=== PATIENT | female | born 1985 | race Two or more races ===

== ENCOUNTER 2019-06-30 01:23 | Inpatient (IN) | payer MEDICAID, OTHER ==
[~2019-06-30] VITALS: Ht 170.2 cm; Wt 85.7 kg
[2019-06-30 02:33] LABS: HEMATOCRIT 38.1 % (36.0-47.0); HEMOGLOBIN 12.6 g/dl (12.0-15.5); MEAN CORPUSCULAR HGB CONC 33.1 g/dl (32.0-36.5); MEAN CORPUSCULAR VOLUME 81.8 fl (80.0-96.0); PLATELET COUNT, AUTOMATED 297 10^3/uL (150-450); RED BLOOD COUNT 4.66 10^6/uL (4.00-5.40); WHITE BLOOD COUNT 9.1 10^3/uL (4.0-10.0)
[2019-06-30 03:11] LABS: ACETAMINOPHEN LEVEL < 2.0 UG/ML (10.0-30.0); ALBUMIN 3.1 GM/DL (3.2-5.2); ALT/SGPT 14 U/L (12-78); BILIRUBIN,DIRECT < 0.1 MG/DL (0.0-0.2); BILIRUBIN,TOTAL 0.4 MG/DL (0.2-1.0); BLOOD UREA NITROGEN 7 MG/DL (7-18); CALCIUM LEVEL 8.7 MG/DL (8.5-10.1); CARBON DIOXIDE LEVEL 25 MEQ/L (21-32); CHLORIDE LEVEL 106 MEQ/L (98-107); CREATININE FOR GFR 0.61 MG/DL (0.55-1.30); ETHYL ALCOHOL (ETHANOL) < 0.003 % (0.000-0.010); GLOMERULAR FILTRATION RATE > 60.0 (>60); GLUCOSE, FASTING 95 MG/DL (70-100); SALICYLATE LEVEL 3.8 MG/DL (5.0-30.0); SODIUM LEVEL 139 MEQ/L (136-145); THYROID STIMULATING HORMONE 0.271 uIU/ML (0.358-3.740); TOTAL PROTEIN 7.5 GM/DL (6.4-8.2)
[2019-06-30 04:09] LABS: HCG, SERUM QUALITATIVE NEGATIVE (NEGATIVE)
[2019-06-30 04:42] LABS: AMPHETAMINES LEVEL URINE NEGATIVE (NEGATIVE); BARBITURATES URINE NEGATIVE (NEGATIVE); BENZODIAZEPINES URINE NEGATIVE (NEGATIVE); CANNABINOIDS URINE POSITIVE (NEGATIVE); COCAINE METABOLITE URINE NEGATIVE (NEGATIVE); METHADONE URINE NEGATIVE (NEGATIVE); OPIATES URINE NEGATIVE (NEGATIVE); PHENCYCLIDINE URINE NEGATIVE (NEGATIVE)
[2019-06-30] MEDS ORDERED: SUBO12MI SL (08:05)
[2019-06-30] MEDS ORDERED: REME45TA2 PO (08:05)
[2019-06-30] MEDS ORDERED: MOM 30ML SUSPENSION UDC PO PRN (12:00)
[2019-06-30] MEDS ORDERED: traZODone 50 MG TAB PO PRN (12:00)
[2019-06-30] MEDS ORDERED: ACETAMINOPHEN TAB 650MG DOSE (2X325MG) PO PRN (12:00)
[2019-06-30] MEDS ORDERED: MAALOX 30 ML SUSP *UDC PO PRN (12:00)
[2019-06-30] MEDS ORDERED: XULA1DIS TOP (12:18)
[2019-06-30] MEDS ORDERED: GABA600T4 PO (12:18)
[2019-06-30] MEDS ORDERED: TRAM50TA2 PO (12:18)
[2019-06-30 14:56] VITALS: BP 109/59
--- NOTE | 2019-06-30 19:33 | HPEPDOC ---
[facility] Medical History & Physical Date of Admission Jun 30, 2019 Date of Service: Jun 30, 2019 Attending Physician: Laurie Kimbrough MD History and Physical HISTORY OF PRESENT ILLNESS: Patient is a 33-year-old female with past medical history of chronic back and leg pain, borderline personality disorder, anxiety, depression who was admitted to inpatient mental health on 06/30/2019 with the chief complaint of unspecified depressive disorder. According to notes the patient was brought to [facility] after calling the police stating that she was going to harm herself. The patient has a history of self-harm, suicidal ideation. According to notes the patient was acting very during their initial examination in the emergency room with falling asleep frequently, the patient was guarded with responses. She remembered coming to the emergency room but denied making comments saying she went to kill herself. She admits to being noncompliant with her psychiatric medications. And she later states that she lost the medications and that's why she wasn't taking her meds. The patient was admitted to inpatient mental health for unspecified depressive disorder, suicidal ideation. On my evaluation of the patient she was very short with me, she admitted to hearing voices at times. She states the voices are people that she knows and sometimes or not. She admits to feeling hopeless and she states nobody listens to her. She would frequently fall asleep during our interview and then quickly shake her head and say "I'm sorry". The patient denies suicidal or homicidal ideation with me currently. She denies chest pain, nausea, vomiting, fevers, chills. REVIEW OF SYSTEMS: CONSTITUTIONAL: Denies lack of energy, unexplained weight gain or weight loss, loss of appetite, fever, night sweats EYES: Denies eye drainage, eye pain, visual changes, dry/irritated eye EARS, NOSE, MOUTH, THROAT: Denies difficulty hearing, ringing in ears, mouth sores, loose teeth, sore throat, facial numbness or pain NECK: Denies swollen glands CARDIOVASCULAR: Denies irregular heartbeat, racing heart, chest pains, swelling of feet or legs, pain in legs with walking RESPIRATORY: Denies shortness of breath, night sweats, wheezing, sputum production, oxygen at home, coughing up blood, cough lasting > 1 month GASTROINTESTINAL: Denies abdominal pain, constipation, bloody stool, diarrhea, heartburn, nausea, vomiting GENITOURINARY: Denies painful urination, bloody urine, frequent urination, urgency, leaking urine, impotence MUSCULOSKELETAL: Denies joint pain, muscle pain, leg swelling INTEGUMENTARY: Denies rash, itching, new skin lesion, change in existing skin lesion, hair loss or increase, breast changes. NEUROLOGICAL: Denies headaches, dizziness, difficulty walking, numbness or tingling PAST MEDICAL HISTORY: 1. Borderline personality disorder 2. Anxiety 3. Depression 4. History of self-harm by cutting 5. History of suicidal ideation 6. History of drug use 7. Tobacco use PAST SURGICAL HISTORY: 1. None FAMILY HISTORY: Father: Diabetes, hypertension. Alive Mother: Diabetes. Alive SOCIAL HISTORY: The patient admits to smoking 1 pack per day for the past 18 years. She smokes cigarettes and marijuana. She is also used "other drugs" in the past but she did not specify. She denies alcohol use. Her primary care provider is Dr. Cronin in [place], she follows with psychiatry community [facility]. ALLERGIES: Please see below. HOME MEDICATIONS: Please see below. PHYSICAL EXAMINATION: CONSTITUTIONAL: No acute distress, sitting up in bed, falls asleep frequently during interview EYES: PERRLA, EOM intact HENT, MOUTH: Normocephalic, atraumatic, moist mucous membranes, NECK: SUPPLE, no JVD, no lymphadenopathy, no carotid bruit CV: Regular rate and rhythm, S1S2 normal, no murmurs/rubs/gallops RESPIRATORY: Clear to auscultation bilaterally, no rales/rhonchi/wheezes GI: BS positive in 4 quadrants, soft, nontender, nondistended, no rebound or guarding, no organomegaly : Deferred MUSCULOSKELETAL: Normal ROM. No cyanosis, clubbing, swelling, joint deformity, extremity edema INTEGUMENTARY: Multiple scarred and scabbed areas up and down her arms from prior cutting, some scabbed in more recent. Some deeper scars noted as well. Multiple tattoos. no rashes NEUROLOGIC: Cranial Nerves II-XII are intact, no focal deficits PSYCHIATRIC: Flat affect LABORATORY DATA: Please see below IMAGING: None ASSESSMENT: 33-year-old female limited under inpatient mental health for unspecified depressive disorder. PLAN: 1. Unspecified depressive disorder with suicidal ideation. Plan as per psychiatry team. 2. Borderline personality disorder. Plan as per psychiatry team. 3. Anxiety. Plan as per psychiatry team. 4. History of drug use. C/w suboxone. 5. Tobacco use. Recommend nicotine patch. 6. Back and leg pain, chronic. Resume home medications. DISPOSITION: The patient is currently admitted under inpatient mental health. At this time we'll sign off on patient. Please feel free to reach out to us at any time for us to reassess. Vital Signs Vital Signs Date Time Temp Pulse Resp B/P (MAP) Pulse Ox O2 Delivery O2 Flow Rate FiO2 06/30/19 14:56 98.4 61 16 109/59 (76) 98 Room Air Laboratory Data Labs 24H Laboratory Tests 2 06/30/19 02:00: Nucleated Red Blood Cells % (auto) 0.0, Anion Gap 8, Glomerular Filtration Rate > 60.0, Calcium Level 8.7, Total Bilirubin 0.4, Direct Bilirubin < 0.1, Aspartate Amino Transf (AST/SGOT) 22, Alanine Aminotransferase (ALT/SGPT) 14, Alkaline Phosphatase 70, Total Protein 7.5, Albumin 3.1L, Albumin/Globulin Ratio 0.70L, Thyroid Stimulating Hormone (TSH) 0.271L, Human Chorionic Gonadotropin, Qual NEGATIVE, Salicylates Level 3.8L, Urine Opiates Screen NEGATIVE, Urine Methadone Screen NEGATIVE, Acetaminophen Level < 2.0L, Urine Barbiturates Screen NEGATIVE, Urine Phencyclidine Screen NEGATIVE, Urine Amphetamines Screen NEGA TIVE, Urine Benzodiazepines Screen NEGATIVE, Urine Cocaine Metabolite Screen NEGATIVE, Urine Cannabinoids Screen POSITIVEH, Ethyl Alcohol Level < 0.003 CBC/BMP Laboratory Tests 06/30/19 02:00 Home Medications Scheduled Buprenorphine HCl/Naloxone HCl (Suboxone 12 mg-3 mg Sl Film) 1 Each Film, 1.5 STRIP SL DAILY Gabapentin (Gabapentin) 600 Mg Tablet, 600 MG PO TID Mirtazapine (Remeron) 45 Mg Tab.rapdis, 45 MG PO QHS Norelgestromin/Ethin.estradiol (Xulane Patch) 1 Each Patch.tdwk, 1 PATCH TOP QMONTH APPLIED LAST WEEK BUT NOT SURE OF WHAT DAY Scheduled PRN Tramadol HCl (Tramadol HCl) 50 Mg Tablet, 50 MG PO QID PRN for PAIN Allergies Coded Allergies: codeine (Verified Allergy, Intermediate, 06/30/19) A-FIB/CHADSVASC A-FIB History Current/History of A-Fib/PAF?: No Current PO Anticoag Therapy: No Age/Risk Factor Scoring CHADSVASC: CHADSVASC Response (Comments) Value Age Risk Factor Age < 65 years old 0 Gender Risk Factor Female 1 Hx of CHF No 0 Hx of HTN No 0 Hx of Stroke/TIA/or VTE No 0 Hx of Diabetes No 0 Hx of Vascular Disease No 0 Total 1 Treatment Treatment ordered: NONE Laurie Kimbrough MD Jun 30, 2019 19:33
[2019-07-01 06:07] VITALS: BP 150/63
[2019-07-01] MEDS ORDERED: SUBO8MIS SL (12:26)
[2019-07-01] MEDS ORDERED: TOPI100T9 PO (12:28)
[2019-07-01] MEDS ORDERED: traMADol 50 MG TAB PO PRN (15:15)
[2019-07-01] MEDS ORDERED: PILL CUTTER 1 EACH XX PRN (15:15)
[2019-07-01] MEDS: GABAPENTIN 300 MG CAP PO SCH ×2 (15:55→20:31)
[2019-07-01] MEDS: BUPRENORPHINE/NALOXONE 8-2MG SUBLINGUAL TABLET(SUBOXONE) SL SCH (15:55)
[2019-07-01 16:22] VITALS: BP 131/88
[2019-07-01] MEDS ORDERED: MIRTAZAPINE 15 MG TAB PO SCH (21:00)
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
[2019-07-02 06:21] VITALS: BP 90/51
[2019-07-02] MEDS ORDERED: TOPIRAMATE (TopAMAX) 100 MG TAB PO SCH (09:00)
[2019-07-02] MEDS: GABAPENTIN 300 MG CAP PO SCH (09:08)
[2019-07-02] MEDS: BUPRENORPHINE/NALOXONE 8-2MG SUBLINGUAL TABLET(SUBOXONE) SL SCH (09:08)
[2019-07-02] MEDS ORDERED: GABA600T4 PO (10:11)
[2019-07-02] MEDS ORDERED: REME45TA2 PO (10:11)
[2019-07-02] MEDS ORDERED: ABIL1TAB11 PO (10:11)
[2019-07-02] MEDS ORDERED: SUBO8MIS SL (10:11)
--- NOTE | 2019-07-03 21:10 | MHDSPDOC ---
[facility] Discharge Summary Discharge Summary DATE OF ADMISSION: Jun 30, 2019 at 11:55 DATE OF DISCHARGE: Jul 02, 2019 at 12:35 Discharge Alicia Mendiola MRN: N/A Date of : N/A Date of Service: 07/02/2019 Diagnoses Unspecified psychiatric disorder. Methamphetamine use disorder, severe. Opioid use disorder, severe. Nicotine use disorder, unspecified. Hallucinogen use disorder, in remission. History of Present Illness The patient a 33-year-old woman brought to the ED by police, had been reportedly sipping water when she was initially assessed by the psychiatrist, primarily paranoid and acting unusual after using multiple substances. The patient is admitted and resolved quite quickly. Consultants Involved Hospitalist/PCP screening Treatment and Progress On The Unit Patient was admitted to the inpatient mental health unit with relatively quick resolution of her psychotic symptoms returning to a normal mental status exam with fair insight quite quickly. The patient did not require any substantial changes to home medications and was generally resumed on her home medicines. It appeared quite clear that the patient was primarily presenting due to her substance abuse that had caused her to appear to be psychotic. She improved well without any major problems and quickly denied any paranoid thoughts, suicidal thoughts and was cleared for discharge. Discharge Assessment The patient a 33-year-old woman with significant substance use presents after using likely methamphetamine or other stimulant becoming paranoid. She is brought in and after primarily supportive treatment she resolves quickly without any intensive interventions suggesting primarily substance use. The patient at the time of discharge did not meet criteria for involuntary admission/extension due to having a normal mental status exam, fair insight into the situation, They are engaged in the discharge process, as well as being friendly and amenable in behavioral control and havent been engaging in any observed concerning behavior or ideation recently. They decline voluntary extension/admission at this time and must be discharged in good lisandra, as Im unable to make a case for holding the patient against their will. They may have historical risk factors of admissions and other interactions with psychiatry however, those are not modifiable from a clinical perspective. The patient will need to be discharged in good lisandra. Mental Status Examination General: Well dressed with good hygiene Speech: Spontaneous and fluid Thought processes: Linear and logical MSK: Smooth and coordinated gait, no signs of tremors or involuntary orofacial movements Thought content: Future orientated Abstract reasoning, and computation: Intact Description of associations: Intact Description of abnormal or psychotic thoughts: Denies any suicidal or homicidal ideation. Denies any auditory or visual hallucinations. Does not appear to be responding to internal stimuli. Does not appear to be endorsing any bizarre or paranoid ideation. Judgment: fair Insight: fair Orientation: Alert and orientated 3 Cognition: Grossly normal Recent and remote memory: Intact Attention span and concentration: Intact Fund of knowledge: Adequate Mood: "okay" Affect: Euthymic with a full range Follow Up The social work team worked during the predischarge meeting in order to evaluate for further issues of lethality address them fully before discharge. They worked on safety planning with the patient's family members in order to ensure that the patient will have a safe and effective discharge. Time Spent The amount of time spent in the coordination of care for this patient was approximately 45 minutes. Tuesday Vital Signs/I&Os Vital Signs Date Time Temp Pulse Resp B/P (MAP) Pulse Ox O2 Delivery O2 Flow Rate FiO2 07/02/19 06:21 99.6 102 18 90/51 (64) 97 Room Air Medications Scheduled Aripiprazole (Abilify) 5 Mg Tablet, 5 MG PO BID for mood for 7 Days, #14 Buprenorphine HCl/Naloxone HCl (Suboxone 8 mg-2 mg Sl Film) 1 Each Film, 1.5 STRIP SL DAILY for OPIOID for 7 Days, #12 Gabapentin (Gabapentin) 600 Mg Tablet, 600 MG PO TID for anxiety for 7 Days, #21 Mirtazapine (Remeron) 45 Mg Tab.rapdis, 45 MG PO QHS for mood for 7 Days, #7 Norelgestromin/Ethin.estradiol (Xulane Patch) 1 Each Patch.tdwk, 1 PATCH TOP QMONTH, (Reported) APPLIED LAST WEEK BUT NOT SURE OF WHAT DAY Topiramate (Topiramate) 100 Mg Tablet, 1 TAB PO DAILY for . for 30 Days, #60 (Reported) Scheduled PRN Tramadol HCl (Tramadol HCl) 50 Mg Tablet, 50 MG PO QID PRN for PAIN, (Reported) Allergies Coded Allergies: codeine (Verified Allergy, Intermediate, 06/30/19) BOB CAMERON DO Jul 03, 2019 21:10
== END 2019-07-02 12:35 | disposition home or self-care (01) | DRG 773 ==
LOC: M ED 01:23 → M ED INP 11:55 → M ED 14:07 → M PSY 14:10
PROVIDERS: ADMIT Psychiatry & Neurology Psychiatry; ATTEND Psychiatry & Neurology Addiction Medicine
DX: F19.150 Other psychoactive substance abuse with psychoactive substance-induced psychotic disorder with delusions (principal); R45.851 Suicidal ideations; F41.9 Anxiety disorder, unspecified; F17.210 Nicotine dependence, cigarettes, uncomplicated; F15.20 Other stimulant dependence, uncomplicated; F11.20 Opioid dependence, uncomplicated; G89.29 Other chronic pain; F29 Unspecified psychosis not due to a substance or known physiological condition; Z81.8 Family history of other mental and behavioral disorders; Z88.5 Allergy status to narcotic agent; Z91.5 Personal history of self-harm

== ENCOUNTER 2019-10-30 14:47 | Emergency (ER) | payer MEDICAID, OTHER ==
[~2019-10-30] VITALS: Ht 170.2 cm; Wt 80.7 kg
[~2019-10-30 14:47] MED LIST: ABIL1TAB11 PO; GABA600T4 PO; REME45TA2 PO; SUBO12MI SL; SUBO8MIS SL; TOPI100T9 PO; TRAM50TA2 PO; XULA1DIS TOP
[2019-10-30] MEDS ORDERED: NS 1,000 ML IV ONE (16:30)
--- NOTE | 2019-10-30 17:28 | REPVR ---
PROCEDURE INFORMATION: Exam: US Right Non-Vascular Joint or Other Extremity Structure, Limited Lower Extremity Exam date and time: 10/30/2019 5:05 PM Age: 33 years old Clinical indication: Pain; Thigh; Right; Additional info: Erythema, induration, R/O fb, PT injected 3 days ago TECHNIQUE: Imaging protocol: Right US joint or other nonvascular extremity structure or structures. Real-time ultrasound with image documentation. Limited study. Exam focused on the lower extremity in the region of clinical interest. COMPARISON: No relevant prior studies available. FINDINGS: Soft tissues: The patient has a scab from previous injection lower thigh and now with erythema and swelling. Ultrasound was performed specifically at this location and there is no evidence of echogenic foreign body. There is however a superficial vein that is completely thrombosed consistent with thrombophlebitis. This superficial vein is probably an anterior accessory vein 7 cm in length. There is occlusive thrombus distending the vein by 5 mm. There is evidence marked focal soft tissue swelling with cellulitis and thrombus. IMPRESSION: In the area of concern there is a thrombosed superficial vein consistent with superficial thrombophlebitis and diffuse edema consistent with cellulitis. Electronically signed by: Antonio Monsalve On 10/30/2019 17:28:09 PM
[2019-10-30] MEDS ORDERED: BACTRIM 160MG/800MG DS TAB PO ONE (20:15)
[2019-10-30] MEDS ORDERED: KETOROLAC 30 MG/ML 1ML VIAL IV ONE (20:15)
[2019-10-30] MEDS ORDERED: VANCOMYCIN HCL 750 MG, VIAL MATE ADAPTER 1 EACH in D5W 250 ML IV ONE ×6 (20:15)
[2019-10-30] MEDS ORDERED: VANCOMYCIN HCL 1,500 MG in IV FLUID PLACE HOLDER 1 EA IV ONE (20:15)
[2019-10-30] MEDS ORDERED: NAPR-837 PO (20:34)
[2019-10-30] MEDS ORDERED: BACT800T5 PO (20:34)
[2019-10-31 00:03] VITALS: BP 96/51
== END 2019-10-31 00:04 | disposition home or self-care (01) ==
LOC: M ED 14:47
DX: I80.01 Phlebitis and thrombophlebitis of superficial vessels of right lower extremity (principal); L03.115 Cellulitis of right lower limb; L03.116 Cellulitis of left lower limb; F19.10 Other psychoactive substance abuse, uncomplicated; G93.5 Compression of brain; E03.9 Hypothyroidism, unspecified; F17.200 Nicotine dependence, unspecified, uncomplicated; Z88.5 Allergy status to narcotic agent; Z79.899 Other long term (current) drug therapy; Z79.3 Long term (current) use of hormonal contraceptives
CPT/HCPCS: 36415; 76882; 87040; 96361; 96365; 96366; 96375; 99284; J1885; J3370

== ENCOUNTER 2020-11-20 10:40 | Inpatient (IN) | payer MEDICAID, OTHER ==
[~2020-11-20] VITALS: Ht 172.7 cm; Wt 97.6 kg
[~2020-11-20 10:40] MED LIST changes: +BACT800T5 PO; +NAPR-837 PO
[2020-11-20 12:04] LABS: HEMATOCRIT 47.6 % (36.0-47.0); HEMOGLOBIN 15.3 g/dl (12.0-15.5); MEAN CORPUSCULAR HEMOGLOBIN 25.9 pg (27.0-33.0); MEAN CORPUSCULAR HGB CONC 32.1 g/dl (32.0-36.5); MEAN CORPUSCULAR VOLUME 80.7 fl (80.0-96.0); PLATELET COUNT, AUTOMATED 416 10^3/uL (150-450); WHITE BLOOD COUNT 9.8 10^3/uL (4.0-10.0)
[2020-11-20 12:21] LABS: AMPHETAMINES LEVEL URINE POSITIVE (NEGATIVE); BARBITURATES URINE NEGATIVE (NEGATIVE); BENZODIAZEPINES URINE NEGATIVE (NEGATIVE); CANNABINOIDS URINE NEGATIVE (NEGATIVE); COCAINE METABOLITE URINE NEGATIVE (NEGATIVE); METHADONE URINE NEGATIVE (NEGATIVE); OPIATES URINE NEGATIVE (NEGATIVE); PHENCYCLIDINE URINE NEGATIVE (NEGATIVE)
[2020-11-20 12:58] LABS: ALBUMIN 4.2 GM/DL (3.2-5.2); ALT/SGPT 42 U/L (12-78); BILIRUBIN,DIRECT 0.2 MG/DL (0.0-0.2); BILIRUBIN,TOTAL 0.5 MG/DL (0.2-1.0); BLOOD UREA NITROGEN 7 MG/DL (7-18); CALCIUM LEVEL 9.9 MG/DL (8.5-10.1); CARBON DIOXIDE LEVEL 27 MEQ/L (21-32); CHLORIDE LEVEL 102 MEQ/L (98-107); CREATININE FOR GFR 0.76 MG/DL (0.55-1.30); GLOMERULAR FILTRATION RATE > 60.0 (>60); GLUCOSE, FASTING 91 MG/DL (70-100); POTASSIUM SERUM 4.2 MEQ/L (3.5-5.1); SALICYLATE LEVEL 4.4 MG/DL (5.0-30.0); SODIUM LEVEL 137 MEQ/L (136-145); THYROID STIMULATING HORMONE 0.662 uIU/ML (0.358-3.740); TOTAL PROTEIN 9.7 GM/DL (6.4-8.2)
[2020-11-20 12:59] LABS: ACETAMINOPHEN LEVEL < 2.0 UG/ML (10.0-30.0); ETHYL ALCOHOL (ETHANOL) < 0.003 % (0.000-0.010)
[2020-11-20 13:12] LABS: HCG, SERUM QUALITATIVE NEGATIVE (NEGATIVE)
[2020-11-20] MEDS ORDERED: LORazepam 2 MG TAB PO STA (13:58)
[2020-11-20 20:55] LABS: RSV AMPLIFICATION NEGATIVE (NEGATIVE)
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
[2020-11-20] MEDS ORDERED: CITA40TA4 PO (23:55)
[2020-11-20] MEDS ORDERED: HOME MED LIST COMPLETE! XX SCH (23:55)
[2020-11-20] MEDS ORDERED: SUBO12MI SL (23:55)
[2020-11-20] MEDS ORDERED: MIRT-62 PO (23:55)
[2020-11-20] MEDS ORDERED: HYDR50TA70 PO (23:55)
[2020-11-21] MEDS ORDERED: ACETAMINOPHEN TAB 650MG DOSE (2X325MG) PO PRN (00:30)
[2020-11-21] MEDS ORDERED: MOM 30ML SUSPENSION UDC PO PRN (00:30)
[2020-11-21] MEDS ORDERED: OLANZapine ORAL DISINTEGRATING TAB 5MG PO ONE (00:30)
[2020-11-21] MEDS ORDERED: MAALOX 30 ML SUSP *UDC PO PRN (00:30)
[2020-11-21 06:45] VITALS: BP 112/53
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
[2020-11-21 16:49] VITALS: BP 120/60
[2020-11-21] MEDS: traZODone 50 MG TAB PO PRN (20:49)
[2020-11-21] MEDS: OLANZapine 5 MG TAB PO SCH (20:49)
[2020-11-22 06:16] VITALS: BP 109/53
[2020-11-22] MEDS: OLANZapine 5 MG TAB PO SCH ×2 (09:00→21:00)
--- NOTE | 2020-11-22 13:12 | MHIPNPDOC ---
[facility] Progress Note Progress Note DATE OF SERVICE: 11/22/20 HISTORY: See H&P Interval: Lying in bed isolative to room, has refused her olanzapine. When asked about why refusing medications just mutters to herself, poorly interactive on interview but is able to endorse not having medication side effects, denies suicidal homicidal ideations. Denies psychiatric symptoms and mostly withdrawn. Was encouraged to take medications to help improve her symptoms. Made aware in a safe environment. VITAL SIGNS: See below. NEW TEST RESULTS: None CURRENT MEDICATIONS: See below. MENTAL STATUS EXAMINATION: Patient is a 34-year old female, who is in no acute distress, elevated BMI, long dark hair, poor eye contact Speech: Is poverty of speech Language skills are poor. Thought processes including: Disorganized. Thought content: Denies suicidal homicidal ideation. Abstract reasoning, and computation: Poor. Description of associations: Poor. Description of abnormal or psychotic thoughts: Denies, but appears internally. Judgment: Poor. Insight: Poor. Orientation: To person place and time. Recent and remote memory: Poor. Attention span and concentration: Poor. Language: Maori Fund of knowledge: Unable to fully assess based on injury Mood: "[place]". Affect: Flat, withdrawn, internally preoccupied DIAGNOSES: Substance-induced psychosis Nicotine use disorder methamphetamine use disorder Rule out borderline personality disorder Rule out antisocial personality disorder Rule out bipolar disorder ASSESSMENT: Patient continues to remain internally preoccupied, grossly psychotic and refusing medications despite encouragement. Mostly isolative to her room lying in bed. Denies any acute physical concerns or medication side effects. Refuses medication changes when offered. MANAGEMENT PLAN: Continue with current medications encouraged to take her o lanzapine for psychotic symptoms, remain psychotic warranting continued hospital stay. TIME SPENT: 15 minutes. Vital Signs Vital Signs Date Time Temp Pulse Resp B/P (MAP) Pulse Ox O2 Delivery O2 Flow Rate FiO2 11/22/20 06:16 97.6 67 16 109/53 (71) 95 Room Air Current Medications Current Medications Medications (Trade) Dose Ordered Sig/Shad Route PRN Reason Start Time Stop Time Status Last Admin Dose Admin Acetaminophen (Tylenol Tab) 650 mg Q6HP PRN PO HEADACHE or MILD DISCOMFORT 11/21/20 00:30 Al Hydrox/Mg Hydrox/Simethicone (Mylanta) 30 ml Q4HP PRN PO HEARTBURN/INDIGESTION 11/21/20 00:30 Home Med (Home Med List Complete!) ASDIRECTED XX 11/20/20 23:55 11/21/20 00:06 DC Lorazepam (Ativan) 2 mg STAT STAT PO 11/20/20 13:58 11/20/20 13:59 DC 11/20/20 14:04 Magnesium Hydroxide (Milk Of Magnesia) 30 ml DAILYPRN PRN PO CONSTIPATION 11/21/20 00:30 Olanzapine (ZyPREXA) 5 mg BID PO 11/21/20 21:00 11/21/20 20:49 Trazodone HCl (Desyrel) 50 mg QHSP PRN PO INSOMNIA 11/21/20 00:30 11/21/20 20:49 Allergies Coded Allergies: codeine (Verified Allergy, Intermediate, 06/30/19) DION RANDOLPH MD Nov 22, 2020 13:12
--- NOTE | 2020-11-22 15:21 | HPEPDOC ---
[facility] Medical History & Physical Date of Admission Nov 21, 2020 Date of Service: Nov 22, 2020 Attending Physician: JANE DAVEY MD History and Physical CHIEF COMPLAINT: Suicidal gesture with suicidal ideation HISTORY OF PRESENT ILLNESS: 34-year-old female with a history of PSUD borderline personality disorder, anxiety, depression who was admitted to inpatient mental health on 11/21/2020 a suicidal gesture/attempt when she cut herself at the neck with broken glass and performed the same on her arms and reported suicidal ideation to her from whom she is , and he called 911 and she was brought into the ED. According to the medical record notes, she was brought to [facility] after self harming behavior with cutting herself with broken glass and endorsing suicidal intentions to her . then reported that may have been using illicit drugs with noncompliance with her psychiatric medications. She is now admitted to the [facility] and internal medicine is consulted for a medical H&P. On my evaluation, she was in bed, with blanket over most of her head to the neck reporting feeling tired. She answering questions with mostly yes or no and denied any chronic medications outside of her psych medications, no chronic medical conditions, denies recent fever, chills, SOB, recent travel, abdominal pain, chest pain, palpitations, diarrhea, any bleeding. REVIEW OF SYSTEMS: 9 point ROS was negative. She refused to answer questions pertaining to psychiatric health mainly suicidality, hearing voices or being depressed, though it was quite evident with her flat affect and lack of interest. PAST MEDICAL HISTORY: 1. Borderline personality disorder 2. Anxiety 3. Depression 4. History of self-harm by cutting 5. History of suicidal ideation 6. History of drug use 7. Tobacco use PAST SURGICAL HISTORY: 1. None FAMILY HISTORY: Father: Diabetes, hypertension. Alive Mother: Diabetes. Alive SOCIAL HISTORY: Nicotine addiction, smokes PSUD with multiple substance ALLERGIES: Please see below. HOME MEDICATIONS: Please see below. PHYSICAL EXAMINATION: CONSTITUTIONAL: No acute distress, laying in bed with blankets pulled up to chin EYES: PERRLA, EOM intact HENT, Normocephalic, atraumatic CV: refused examination RESPIRATORY: Breathing comfortably on room air, no audible wheezing, speaking in full sentences. Refused auscultation GI: Refused NEUROLOGIC: clear speech, cranial nerves appear intact PSYCHIATRIC: Flat affect LABORATORY DATA: Please see below IMAGING: None ASSESSMENT: 34-year-old W was is admitted to inpatient mental health for suicidal behavior with unspecified depressive disorder and PSUD. PLAN: 1. Unspecified depressive disorder with suicidal ideation. Plan as per psychiatry team. 2. Borderline personality disorder. Plan as per psychiatry team. 3. Anxiety. Plan as per psychiatry team. 4. History of drug use. per psychiatry team. 5. Tobacco use. Recommend nicotine patch. DVT ppx: ambulatory At this time we'll sign off on patient. Please feel free to reach out to internal medicine at any time for medical concerns. Vital Signs Vital Signs Date Time Temp Pulse Resp B/P (MAP) Pulse Ox O2 Delivery O2 Flow Rate FiO2 11/22/20 06:16 97.6 67 16 109/53 (71) 95 Room Air Home Medications Scheduled Buprenorphine HCl/Naloxone HCl (Suboxone 12 mg-3 mg Sl Film) 1 Each Film, 1 STRIP SL DAILY Citalopram Hydrobromide (Citalopram HBr) 40 Mg Tablet, 40 MG PO DAILY Mirtazapine (Remeron) 15 Mg Tablet, 15 MG PO QHS Scheduled PRN Hydroxyzine HCl (Hydroxyzine HCl) 50 Mg Tablet, 50 MG PO TID PRN for ANXIETY Allergies Coded Allergies: codeine (Verified Allergy, Intermediate, 06/30/19) A-FIB/CHADSVASC A-FIB History Current/History of A-Fib/PAF?: No Current PO Anticoag Therapy: No Age/Risk Factor Scoring CHADSVASC: CHADSVASC Response (Comments) Value Age Risk Factor Age < 65 years old 0 Gender Risk Factor Female 1 Hx of CHF No 0 Hx of HTN No 0 Hx of Stroke/TIA/or VTE No 0 Hx of Diabetes No 0 Hx of Vascular Disease No 0 Total 1 Treatment Treatment ordered: NONE Reason Anticoagulant not given: Not indicated/[id number] JANE DAVEY MD Nov 22, 2020 15:21
[2020-11-22 16:19] VITALS: BP 113/59
[2020-11-23] MEDS: OLANZapine 5 MG TAB PO SCH ×2 (09:28→20:43)
--- NOTE | 2020-11-23 12:07 | MHIPNPDOC ---
[facility] Progress Note Progress Note DATE OF SERVICE: 11/23/20 HISTORY: See H&P Interval: Continues to be lying in bed mostly isolative to room. No aggression or agitation seen. Did take her overnight olanzapine without noted side effects or acute concerns physically by patient. Sleep is reported to be good, appetite okay. No tight muscles endorsed or shakiness noted on interview. VITAL SIGNS: See below. NEW TEST RESULTS: None CURRENT MEDICATIONS: See below. MENTAL STATUS EXAMINATION: Patient is a 34-year old female, who is in no acute distress, elevated BMI, long dark hair, poor eye contact Speech: poverty of speech, one-word answers Language skills are poor. Thought processes including: Disorganized. Thought content: Denies suicidal homicidal ideation. Abstract reasoning, and computation: Poor. Description of associations: Poor. Description of abnormal or psychotic thoughts: Denies, but appears internally. Judgment: Poor. Insight: Poor. Orientation: To person place and time. Recent and remote memory: Poor. Attention span and concentration: Poor. Language: Lao Fund of knowledge: Unable to fully assess based on injury Mood: "same". Affect: no change, Continues to be be flat, withdrawn, internally preoccupied DIAGNOSES: Substance-induced psychosis Nicotine use disorder methamphetamine use disorder Rule out borderline personality disorder Rule out antisocial personality disorder Rule out bipolar disorder ASSESSMENT: Patient continues to be lying in bed, despondent, looking at the wall with poor eye contact, denying psychiatric symptoms, but takes medications. No acute physical complaints or concerns. MANAGEMENT PLAN: Continue with current medications, denies side effects. TIME SPENT: 15 minutes. Vital Signs Vital Signs Date Time Temp Pulse Resp B/P (MAP) Pulse Ox O2 Delivery O2 Flow Rate FiO2 11/22/20 16:19 98.7 66 16 113/59 (77) 95 Room Air Current Medications Current Medications Medications (Trade) Dose Ordered Sig/Shad Route PRN Reason Start Time Stop Time Status Last Admin Dose Admin Acetaminophen (Tylenol Tab) 650 mg Q6HP PRN PO HEADACHE or MILD DISCOMFORT 11/21/20 00:30 Al Hydrox/Mg Hydrox/Simethicone (Mylanta) 30 ml Q4HP PRN PO HEARTBURN/INDIGESTION 11/21/20 00:30 Home Med (Home Med List Complete!) ASDIRECTED XX 11/20/20 23:55 11/21/20 00:06 DC Lorazepam (Ativan) 2 mg STAT STAT PO 11/20/20 13:58 11/20/20 13:59 DC 11/20/20 14:04 Magnesium Hydroxide (Milk Of Magnesia) 30 ml DAILYPRN PRN PO CONSTIPATION 11/21/20 00:30 Olanzapine (ZyPREXA) 5 mg BID PO 11/21/20 21:00 11/23/20 09:28 Trazodone HCl (Desyrel) 50 mg QHSP PRN PO INSOMNIA 11/21/20 00:30 11/21/20 20:49 Allergies Coded Allergies: codeine (Verified Allergy, Intermediate, 06/30/19) DION RANDOLPH MD Nov 23, 2020 12:07
[2020-11-23 16:34] VITALS: BP 106/59
[2020-11-23] MEDS: traZODone 50 MG TAB PO PRN (20:43)
[2020-11-24 07:11] VITALS: BP 91/50
[2020-11-24] MEDS: OLANZapine 5 MG TAB PO SCH ×2 (08:11→20:25)
--- NOTE | 2020-11-24 15:56 | MHIPNPDOC ---
[facility] Progress Note Progress Note DATE OF SERVICE: 11/24/20 HISTORY: Patient is a 34 -year-old , Unemployed, Domiciled , female, was a 9.41 to [facility] after she attempted to cut her neck with a piece of glass. Her stopped her attempt and reports that stopped her twice from cutting herself. Patient has not been taking medications. Reported to her that she wanted to . Has a history of polysubstance abuse. Her last hospitalization June 2019. At that time her diagnosis was opioid use disorder, severe. VITAL SIGNS: See below. NEW TEST RESULTS: None CURRENT MEDICATIONS: See below. MENTAL STATUS EXAMINATION: Patient is a 34-year old female, who is in no acute distress, elevated BMI, long dark hair, poor eye contact, malodorous, unkempt Speech: impoverished, one-word answers Language skills are poor. Thought processes including: Disorganized. Thought content: Unable to determine depression or anxiety as patient is refusing to speak in interview. She had reported to senior planner that she has suicidal homicidal ideations. Abstract reasoning, and computation: Poor. Description of associations: Poor. Description of abnormal or psychotic thoughts: Denies, but unable to assess, she refuses to engage in interview Judgment: Poor. Insight: Poor. Orientation: To person place and time. Recent and remote memory: Poor. Attention span and concentration: Poor. Language: Welsh Fund of knowledge: Unable to fully assess based on refusal to engage in interview Mood: neutral. Affect: no change, Continues to be be flat, withdrawn, isolative DIAGNOSES: Substance-induced psychosis Nicotine use disorder methamphetamine use disorder Rule out borderline personality disorder Rule out antisocial personality disorder Rule out bipolar disorder ASSESSMENT: Patient continues to sleep. She is isolative, guarded and withdrawn. Per staff patient sleep throughout the day. She is not engaged in the milieu or any other treatments but she is compliant with medications. Have attempted to see this patient x 3 throughout this shift. Patient has poor attention to ADLs. MANAGEMENT PLAN: Continue with current medications, denies side effects. Will discharge when patient is stable. TIME SPENT: 15 minutes. Vital Signs Vital Signs Date Time Temp Pulse Resp B/P (MAP) Pulse Ox O2 Delivery O2 Flow Rate FiO2 11/24/20 07:11 99.0 62 18 91/50 (64) 97 Room Air Current Medications Current Medications Medications (Trade) Dose Ordered Sig/Shad Route PRN Reason Start Time Stop Time Status Last Admin Dose Admin Acetaminophen (Tylenol Tab) 650 mg Q6HP PRN PO HEADACHE or MILD DISCOMFORT 11/21/20 00:30 Al Hydrox/Mg Hydrox/Simethicone (Mylanta) 30 ml Q4HP PRN PO HEARTBURN/INDIGESTION 11/21/20 00:30 Home Med (Home Med List Complete!) ASDIRECTED XX 11/20/20 23:55 11/21/20 00:06 DC Lorazepam (Ativan) 2 mg STAT STAT PO 11/20/20 13:58 11/20/20 13:59 DC 11/20/20 14:04 Magnesium Hydroxide (Milk Of Magnesia) 30 ml DAILYPRN PRN PO CONSTIPATION 11/21/20 00:30 Olanzapine (ZyPREXA) 5 mg BID PO 11/21/20 21:00 11/24/20 08:11 Trazodone HCl (Desyrel) 50 mg QHSP PRN PO INSOMNIA 11/21/20 00:30 11/23/20 20:43 Allergies Coded Allergies: codeine (Verified Allergy, Intermediate, 06/30/19) SATURNINO LOMELI NP Nov 24, 2020 15:36
[2020-11-24 17:52] VITALS: BP 104/56
[2020-11-24] MEDS: traZODone 50 MG TAB PO PRN (20:25)
[2020-11-25 06:00] VITALS: BP 97/57
[2020-11-25] MEDS: OLANZapine 5 MG TAB PO SCH (09:49)
--- NOTE | 2020-11-25 12:00 | MHIPNPDOC ---
[facility] Progress Note Progress Note DATE OF SERVICE: 11/25/20 HISTORY: Patient is a 34 -year-old , Unemployed, Domiciled , female, was a 9.41 to [facility] after she attempted to cut her neck with a piece of glass. Her stopped her attempt and reports that stopped her twice from cutting herself. Patient has not been taking medications. Reported to her that she wanted to . Has a history of polysubstance abuse. Her last hospitalization June 2019. At that time her diagnosis was opioid use disorder, severe. VITAL SIGNS: See below. NEW TEST RESULTS: None CURRENT MEDICATIONS: See below. MENTAL STATUS EXAMINATION: Patient is a 34-year old female, who is in no acute distress, elevated BMI, long dark hair, poor eye contact, malodorous, unkempt Speech: only has minimal responses Language skills are poor. Thought processes including: more linear Thought content: reports depression and fleeting suicidal thoughts Abstract reasoning, and computation: fair. Description of associations: fair Description of abnormal or psychotic thoughts: denied Judgment: improving Insight: improving Orientation: To person place and time. Recent and remote memory: improving Attention span and concentration: Poor but improving Language: Kazakh Fund of knowledge: average Mood: neutral. Affect: no change, Continues to be be flat, withdrawn, isolative DIAGNOSES: Substance-induced psychosis Nicotine use disorder methamphetamine use disorder Rule out borderline personality disorder Rule out antisocial personality disorder Rule out bipolar disorder ASSESSMENT: Patient awake minimally during interview. States that her suicidal attempt was an "accident" and that she is in the hospital for medication franco ges. Patient presents as superficial and not fully awake. States that she would like her medications reinstated - states she was on Citalopram (verified) and Gabapentin (states she had this in longterm in December) she reports that this is for nerve pain and anxiety. Patient has had no episodes of anxiety and does not complain of nerve pain. She reports that she is fatigued. During the interview, patient fell asleep. Per staff report, patient is well know to [facility] and oftentimes is isolative and withdrawn. She does not participate in the milieu often times sleeping all day and more animated in the evening. MANAGEMENT PLAN: Continue with current medications, denies side effects. Will discharge when patient is stable. TIME SPENT: 15 minutes. Vital Signs Vital Signs Date Time Temp Pulse Resp B/P (MAP) Pulse Ox O2 Delivery O2 Flow Rate FiO2 11/25/20 06:00 98.2 62 18 97/57 (70) 96 11/24/20 07:11 Room Air Current Medications Current Medications Medications (Trade) Dose Ordered Sig/Shda Route PRN Reason Start Time Stop Time Status Last Admin Dose Admin Acetaminophen (Tylenol Tab) 650 mg Q6HP PRN PO HEADACHE or MILD DISCOMFORT 11/21/20 00:30 Al Hydrox/Mg Hydrox/Simethicone (Mylanta) 30 ml Q4HP PRN PO HEARTBURN/INDIGESTION 11/21/20 00:30 Home Med (Home Med List Complete!) ASDIRECTED XX 11/20/20 23:55 11/21/20 00:06 DC Lorazepam (Ativan) 2 mg STAT STAT PO 11/20/20 13:58 11/20/20 13:59 DC 11/20/20 14:04 Magnesium Hydroxide (Milk Of Magnesia) 30 ml DAILYPRN PRN PO CONSTIPATION 11/21/20 00:30 Olanzapine (ZyPREXA) 5 mg BID PO 11/21/20 21:00 11/25/20 09:49 Trazodone HCl (Desyrel) 50 mg QHSP PRN PO INSOMNIA 11/21/20 00:30 11/24/20 20:25 Allergies Coded Allergies: codeine (Verified Allergy, Intermediate, 06/30/19) SATURNINO LOMELI NP Nov 25, 2020 12:00
[2020-11-25 17:17] VITALS: BP 103/53
[2020-11-25] MEDS: traZODone 50 MG TAB PO PRN (20:12)
[2020-11-25] MEDS ORDERED: OLANZapine 5 MG TAB PO SCH (21:00)
[2020-11-26 06:58] VITALS: BP 114/62
[2020-11-26] MEDS ORDERED: CitaloPRAM (CeleXA) 20 MG TAB PO SCH (09:00)
[2020-11-26] MEDS ORDERED: CELE20TA PO (12:00)
--- NOTE | 2020-11-26 12:12 | MHDSPDOC ---
[facility] Discharge Summary Discharge Summary DATE OF ADMISSION: Nov 21, 2020 at 02:07 DATE OF DISCHARGE: November 26, 2020 at 1141 DISCHARGE DIAGNOSES: Substance-induced psychosis Nicotine use disorder methamphetamine use disorder Rule out borderline personality disorder Rule out antisocial personality disorder REASON FOR ADMISSION: Patient is a 34 -year-old , Unemployed, Domiciled , female, was a 9.41 to [facility] after she attempted to cut her neck with a piece of glass. Her stopped her attempt and reports that he stopped her twice from cutting herself. Patient has not been taking medications. Reported to her that she wanted to . Has a history of polysubstance abuse. Her last hospitalization June 2019. At that time her diagnosis was opioid use disorder, severe. VITAL SIGNS: See below. CONSULTANTS INVOLVED: See Medical H + P by Hospitalist TREATMENT AND PROGRESS ON THE UNIT: Patient was admitted to the [facility] on a 9.39 legal status was afforded the following treatment modalities: 1) Individual Therapy 2) Group Therapy 3) Medication Management 4) Milieu Therapy 5) Safe Environment HOSPITAL COURSE: Patient was admitted to [facility] on a 9.39 legal status. Patient was admitted after she attempted to cut herself and she had reported to her that she wanted to . Patient was positive for amphetamines. During her hospitalization patient slept most of the day during the day, in the evening she was however more animated and was seen in the milieu in the evenings. Many times throughout her one-to-one interviews, she was withdrawn and guarded. She reports that she often sleeps and during the day in that she is not a morning or afternoon person. Patient was started on Zyprexa and citalopram and pt found medications beneficial and tolerated them well. Mood, anxiety, and intrusive thoughts improved with treatment. Patient had minimal participation on the unit. Pts symptoms improved with treatment. On day of discharge pt. denied depression, anxiety, insomnia, SI/HI, hallucinations, delusions. Pt was discharged home with follow-up with [facility]. Pt felt safe for discharge. DISCHARGE ASSESSMENT: In today's interview, patient is alert and oriented, pt.s dress is appropriate. Hygiene and grooming is fair. Denies depression and anxiety. Denies suicidal and homicidal ideation, planning or intent. Denies and is not observed with keren, psychotic symptoms of delusions, bizarre thinking, obsessions, paranoia, ruminations illogical thoughts, flight of ideas or having poor insight and judgement. Reinforced with patient need to abstain from alcohol and drugs. At discharge patient has normal mentation, although she remains very guarded isolative and withdrawn. She declines further hospitalization on a voluntary status and meets criteria for discharge today. MENTAL STATUS EXAMINATION ON DISCHARGE: Patient is a 34 -year-old , Unemployed, Domiciled , female, was a 9.41 to [facility] after she attempted to cut her neck with a piece of glass. Speech: Is spontaneous, slow rate, tone and volume, minimal responses Language skills are intact Thought processes including: linear and goal oriented Thought content: denies depression and anxiety. Denies suicidal/homicidal ideation, planning or intent. Abstract reasoning, and computation: fair Description of associations: denies, none observed Description of abnormal or psychotic thoughts: denies, none observed. Judgment: fair Insight: fair Orientation: alert and oriented to person, place, time and situation Recent and remote memory: intact Attention span and concentration: good Language: expansive Fund of knowledge: average Mood: Neutral mood Affect: Constricted Suicide Risk Assessment: 1) Does the patient wish to be ? No 2) Since your admission, have you had any actual thought of killing yourself? No 3) Since your admission, have you been thinking about how you might do this? No 4) Since your admission, have you had these thoughts and had some intention of acting on them? No 5) Since your admission, have you started to work out or worked out the details of how to kill yourself? No 5A) Do you intent to carry out this plan? No and NA 6) Have you ever done anything, started anything, or prepared to do anything with any intent to ? No 6A) How long since your admission did you do any of these? NA MEDICATIONS ON DISCHARGE: See Medication Reconciliation PLAN/FOLLOWUP ARRANGEMENTS: [facility] The amount of time spent in the coordination of care for this patient was approximately 25 minutes. ETOH/Disorder Med Rx ETOH/DRUG DISORDER RX: Given to pt at d/c (Patient continued on her Suboxone. She was not receiving that while inpatient she was not participating in much of her therapies including medication management. But as this was reported as a home medication this is continued) Vital Signs/I&Os Vital Signs Date Time Temp Pulse Resp B/P (MAP) Pulse Ox O2 Delivery O2 Flow Rate FiO2 11/26/20 06:58 98.5 66 14 114/62 (79) 96 Room Air Medications Scheduled Buprenorphine HCl/Naloxone HCl (Suboxone 12 mg-3 mg Sl Film) 1 Each Film, 1 STRIP SL DAILY, (Reported) Citalopram Hydrobromide (Citalopram HBr) 40 Mg Tablet, 40 MG PO DAILY, (Reported) Citalopram Hydrobromide (Celexa) 20 Mg Tablet, 40 MG PO DAILY for mood, #7 Allergies Coded Allergies: codeine (Verified Allergy, Intermediate, 06/30/19) SATURNINO LOMELI NP Nov 26, 2020 11:46
[2020-11-27] MEDS ORDERED: CITA40TA4 PO (09:25)
== END 2020-11-26 12:10 | disposition home or self-care (01) | DRG 773 ==
LOC: M ED 10:40 → M ED INP 11-21 02:07 → M PSY 11-21 02:19
PROVIDERS: ADMIT Student in an Organized Health Care Education/Training Program; ATTEND Psychiatry & Neurology Psychiatry
DX: F15.159 Other stimulant abuse with stimulant-induced psychotic disorder, unspecified (principal); F11.20 Opioid dependence, uncomplicated; F31.9 Bipolar disorder, unspecified; G89.29 Other chronic pain; R51.9 Headache, unspecified; H52.203 Unspecified astigmatism, bilateral; F41.9 Anxiety disorder, unspecified; F60.3 Borderline personality disorder; F60.2 Antisocial personality disorder; Z79.899 Other long term (current) drug therapy; Z20.822 Contact with and (suspected) exposure to COVID-19; Z88.5 Allergy status to narcotic agent

== ENCOUNTER → 2021-08-11 | Outpatient (REF) | payer MEDICAID, OTHER, SELFPAY ==
[~2021-08-11] MED LIST changes: +CELE20TA PO; +CITA40TA7 PO; +HYDR50TA70 PO; +MIRT-62 PO
[2021-08-11 17:47] LABS: GC DNA AMPLIFICATION NEGATIVE (NEGATIVE)
== END ==
LOC: M LAB REF 15:51
PROVIDERS: ATTEND Family Medicine
DX: F11.20 Opioid dependence, uncomplicated (principal)

== ENCOUNTER → 2021-09-08 | Outpatient (CLI) | payer OTHER ==
[2021-09-08 15:49] LABS: HEMATOCRIT 41.2 % (36.0-47.0); HEMOGLOBIN 13.3 g/dl (12.0-15.5); MEAN CORPUSCULAR HEMOGLOBIN 27.6 pg (27.0-33.0); MEAN CORPUSCULAR HGB CONC 32.3 g/dl (32.0-36.5); MEAN CORPUSCULAR VOLUME 85.5 fl (80.0-96.0); PLATELET COUNT, AUTOMATED 309 10^3/uL (150-450); RED BLOOD COUNT 4.82 10^6/uL (4.00-5.40); WHITE BLOOD COUNT 6.1 10^3/uL (4.0-10.0)
[2021-09-08 16:22] LABS: ALBUMIN 3.6 GM/DL (3.2-5.2); ALT/SGPT 112 U/L (12-78); BILIRUBIN,TOTAL 0.3 MG/DL (0.2-1.0); BLOOD UREA NITROGEN 13 MG/DL (7-18); CALCIUM LEVEL 9.3 MG/DL (8.5-10.1); CARBON DIOXIDE LEVEL 28 MEQ/L (21-32); CHLORIDE LEVEL 105 MEQ/L (98-107); CREATININE FOR GFR 0.87 MG/DL (0.55-1.30); GLOMERULAR FILTRATION RATE > 60.0 (>60); GLUCOSE, FASTING 111 MG/DL (70-100); POTASSIUM SERUM 4.3 MEQ/L (3.5-5.1); SODIUM LEVEL 139 MEQ/L (136-145); TOTAL PROTEIN 8.4 GM/DL (6.4-8.2)
[2021-09-08 18:46] LABS: HCG, SERUM QUALITATIVE NEGATIVE (NEGATIVE)
[2021-09-08 19:13] LABS: HEPATITIS B SURFACE ANTIGEN NEGATIVE (NEGATIVE)
[2021-09-08 22:46] LABS: HEPATITIS C VIRUS ABY INDEX > 11.0 INDEX (<0.8)
[2021-09-08 23:09] LABS: HIV 1&2 SCREEN CENTAUR NEGATIVE (NEGATIVE)
== END ==
LOC: M WUC 13:51
PROVIDERS: ATTEND Family Medicine
DX: F11.20 Opioid dependence, uncomplicated (principal)